=== PATIENT | female | born 1980 | race Asian ===

== ENCOUNTER 2017-11-03 13:47 | Emergency (ER) | payer SELFPAY ==
[2017-11-03 14:31] VITALS: BP 129/80
--- NOTE | 2017-11-03 16:06 | Emergency Department Report ---
ED Laceration HPI - HPI Chief Complaint: Laceration/Recheck/Suture Stated Complaint: FALL, FOREHEAD LACERATION Time Seen by Provider: 11/03/17 15:37 Occurred When: Before Yesterday Location: Head (right eyebrow) Severity: mild Tetanus Status: Not up to Date (2004) Laceration Symptoms: No Foreign Body Sensation, No Numbness, No Weakness, No Pain Other History: She states she was walking yesterday when she tripped and fell. Patient states she hit her side of the head when she fell and had a scrape to her right eyebrow. Patient states she is able to get up after incident she had no loss of consciousness and has had a scrape on her eyebrow. Patient states she has had no headache, no blurry vision, no dizziness or any other symptoms. Patient just states she wanted to come have that cut assessed. ED Review of Systems ROS: Stated complaint: FALL, FOREHEAD LACERATION Other details as noted in HPI Constitutional: denies: chills, fever Eyes: denies: eye pain, eye discharge, vision change ENT: denies: ear pain, throat pain Respiratory: denies: cough, shortness of breath, wheezing Cardiovascular: denies: chest pain, palpitations Endocrine: no symptoms reported Gastrointestinal: denies: abdominal pain, nausea, vomiting, diarrhea Genitourinary: denies: urgency, dysuria, frequency, hematuria, discharge Musculoskeletal: denies: back pain, joint swelling, arthralgia, myalgia Skin: denies: rash, lesions, pruritus Neurological: denies: headache, weakness, numbness, paresthesias, confusion Psychiatric: denies: anxiety, depression Hematological/Lymphatic: denies: easy bleeding, easy bruising ED Past Medical Hx - Past Medical History Previous Medical History?: No - Surgical History Past Surgical History?: No - Medications Home Medications: Home Medications Medication Instructions Recorded Confirmed Last Taken Type Neomycin/Bacitracin/Polymyxinb 1 applic TP TID #1 tube 11/03/17 Unknown Rx [Triple Antibiotic Ointment] Laceration Physical Exam - Exam General: Vital signs noted. No distress. Alert and acting appropriately. Wound Length (cm): 1 (no bleeding, dry, healing, not involving eyelid or eyes) Laceration Location: Head Full Body Front + Back: 1 - 1cm moderately healing lac on outer eyebrow Laceration Exam: Yes Normal Distal CMS, No Foreign Body, No Exposed Tendon, Vessel, or Nerve, No Tendon Injury ED Course Vital Signs 11/03/17 14:26 Temperature 98.6 F Pulse Rate 80 Respiratory 18 Rate Blood Pressure 129/80 O2 Sat by Pulse 100 Oximetry ED Medical Decision Making - Medical Decision Making 37-year-old female presents with right eyebrow laceration ED course: Patient received TD booster in ED I discussed the patient to apply triple antibiotic to laceration or times a day I discussed the patient to follow up with primary care physician. I discussed the patient is discharged to developing his symptoms such as headaches, blurred vision, nausea or vomiting to return to ED immediately. Signs are normal she is in no acute distress Critical care attestation.: If time is entered above; I have spent that time in minutes in the direct care of this critically ill patient, excluding procedure time. ED Disposition Clinical Impression: Laceration of eyebrow without complication Qualifiers: Encounter type: initial encounter Laterality: right Qualified Code(s): S01.111A - Laceration without foreign body of right eyelid and periocular area, initial encounter Disposition: TO HOME OR SELFCARE Is pt being admited?: No Does the pt Need Aspirin: No Condition: Stable Instructions: Laceration (ED), Acute Wound Care (ED) Additional Instructions: Make sure to follow up with the primary care physician as discussed. Take all your medications as you've been prescribed. If you have any worsening symptoms or develop new symptoms please return to ED immediately. Prescriptions: Neomycin/Bacitracin/Polymyxinb [Triple Antibiotic Ointment] 1 applic TP TID #1 tube Referrals: PRIMARY CARE, [Primary Care Provider] - 3-5 Days [facility] [Outside] - 3-5 Days [facility] [Outside] - 3-5 Days Forms: Work/School Release Form(ED) Time of Disposition: 16:16
[2017-11-03] MEDS ORDERED: BOOSTRIX IM ONE (16:13)
== END 2017-11-03 16:31 | disposition home or self-care (01) ==
LOC: ED 13:47
DX: S01.111A Laceration without foreign body of right eyelid and periocular area, initial encounter (principal); W01.0XXA Fall on same level from slipping, tripping and stumbling without subsequent striking against object, initial encounter; Y93.89 Activity, other specified; Y92.89 Other specified places as the place of occurrence of the external cause; Y99.8 Other external cause status
CPT/HCPCS: 90471; 90715; 99282